=== PATIENT | male | born 1990 | race Caucasian/White ===

== ENCOUNTER 2017-08-06 13:46 | Emergency (ER) | payer BC, OTHER ==
[~2017-08-06] VITALS: Ht 195.6 cm; Wt 89.0 kg
[~2017-08-06 13:46] MED LIST: AMOX875T PO; IBUP-1222 PO; MELO7.5T31 PO; MELOXICAM PO; NAPR-850 PO; OXYC1TAB7 PO
[2017-08-06] MEDS ORDERED: KETOROLAC 30 MG/1 ML ONE (15:00)
[2017-08-06] MEDS ORDERED: KETOROLAC 30 MG/1 ML IM ONE (15:00)
[2017-08-06] MEDS ORDERED: CYCLOBENZAPRINE 10 MG TABLET ONE (16:57)
[2017-08-06] MEDS ORDERED: CYCLOBENZAPRINE 10 MG TABLET PO ONE (17:00)
[2017-08-06 18:21] VITALS: BP 124/80
== END 2017-08-06 18:23 | disposition home or self-care (01) ==
LOC: ED 17:41
DX: S39.012A Strain of muscle, fascia and tendon of lower back, initial encounter (principal); G89.29 Other chronic pain; M79.605 Pain in left leg; M54.5 Low back pain; X58.XXXA Exposure to other specified factors, initial encounter; Y93.89 Activity, other specified; Y99.8 Other external cause status; Y92.89 Other specified places as the place of occurrence of the external cause
CPT/HCPCS: 81003; 96372; 99283; J1885

== ENCOUNTER 2018-04-15 13:05 | Emergency (ER) | payer OTHER ==
[~2018-04-15] VITALS: Ht 195.6 cm; Wt 92.0 kg
[2018-04-15] MEDS ORDERED: KETOROLAC 60 MG/2 ML IM ONE (14:00)
[2018-04-15] MEDS ORDERED: KETOROLAC 30 MG/1 ML ONE (14:02)
[2018-04-15 14:24] LABS: BASOPHILS # (AUTO) 0.02 x10^3/uL (0-0.1); BASOPHILS % (AUTO) 0 % (0-1); EOSINOPHILS # (AUTO) 0.03 x10^3/uL (0-0.4); EOSINOPHILS % (AUTO) 1 % (1-7); LYMPHOCYTES # (AUTO) 1.57 x10^3/uL (1-3.4); LYMPHOCYTES % (AUTO) 32 % (22-44); MD NO; MEAN CORPUSCULAR HEMOGLOBIN 27.4 pg (27.5-34.5); MEAN CORPUSCULAR HGB CONC 33.5 g/dL (33.2-36.2); MEAN CORPUSCULAR VOLUME 81.7 fL (81-97); MEAN PLATELET VOLUME 8.1 fL (7.4-10.4); MONOCYTES # (AUTO) 0.38 x10^3/uL (0.2-0.8); MONOCYTES % (AUTO) 8 % (2-9); NEUTROPHILS # (AUTO) 2.89 x10^3/uL (1.8-6.8); NEUTROPHILS % (AUTO) 59 % (42-75); PLATELET COUNT 190 x10^3/uL (130-400); RED BLOOD COUNT 5.03 x10^6/uL (4.38-5.82); RED CELL DISTRIBUTION WIDTH 12.9 % (9.4-14.8)
[2018-04-15 14:35] LABS: ALBUMIN 3.5 g/dL (3.4-5.0); ANION GAP 6 mmol/L (5-15); CALCIUM 8.6 mg/dL (8.5-10.1); CHLORIDE 113 mmol/L (98-107); CREATININE 1.13 mg/dL (0.7-1.3)
[2018-04-15 15:21] VITALS: BP 114/70
== END 2018-04-15 15:23 | disposition home or self-care (01) ==
LOC: ED 15:17
DX: R07.89 Other chest pain (principal); J40 Bronchitis, not specified as acute or chronic; Z88.8 Allergy status to other drugs, medicaments and biological substances
CPT/HCPCS: 36415; 71046; 80048; 82040; 85025; 93005; 96372; 99285; J1885

== ENCOUNTER 2018-09-09 14:46 | Emergency (ER) | payer OTHER ==
[~2018-09-09] VITALS: Ht 195.6 cm; Wt 89.0 kg
[2018-09-09] MEDS ORDERED: DIAZEPAM 5 MG TABLET PO ONE (16:30)
[2018-09-09] MEDS ORDERED: HYDROcodone/APAP 5/325 TABLET PO ONE ×2 (16:30→17:30)
[2018-09-09] MEDS ORDERED: KETOROLAC 30 MG/1 ML IV ONE (16:30)
[2018-09-09] MEDS ORDERED: DIAZEPAM 5 MG TABLET ONE (16:54)
[2018-09-09] MEDS ORDERED: HYDROcodone/APAP 5/325 TABLET ONE (16:55)
[2018-09-09] MEDS ORDERED: KETOROLAC 30 MG/1 ML ONE (16:55)
[2018-09-09 17:29] VITALS: BP 133/82
[2018-09-09] MEDS ORDERED: KETOROLAC 30 MG/1 ML IM ONE (17:30)
== END 2018-09-09 17:53 | disposition home or self-care (01) ==
LOC: ED 17:47
DX: S39.012A Strain of muscle, fascia and tendon of lower back, initial encounter (principal); M25.562 Pain in left knee; M25.572 Pain in left ankle and joints of left foot; X50.1XXA Overexertion from prolonged static or awkward postures, initial encounter; Y93.89 Activity, other specified; Y99.0 Civilian activity done for income or pay; Y92.69 Other specified industrial and construction area as the place of occurrence of the external cause
CPT/HCPCS: 72110; 73610; 73630; 96372; 99284; J1885

== ENCOUNTER 2019-02-02 21:05 | Emergency (ER) | payer OTHER ==
[~2019-02-02] VITALS: Ht 195.6 cm; Wt 95.9 kg
--- NOTE | 2019-02-02 23:59 | NUR ---
pt called to room from lobby
--- NOTE | 2019-02-03 00:28 | NUR ---
Pt reports right flank pain for a couple days with hematuria today.
[2019-02-03 00:30] LABS: MICROSCOPIC INDICATED
[2019-02-03 00:35] LABS: BASOPHILS # (AUTO) 0.03 x10^3/uL (0-0.1); BASOPHILS % (AUTO) 1 % (0-1); EOSINOPHILS # (AUTO) 0.13 x10^3/uL (0-0.4); EOSINOPHILS % (AUTO) 3 % (1-7); LYMPHOCYTES # (AUTO) 2.04 x10^3/uL (1-3.4); LYMPHOCYTES % (AUTO) 42 % (22-44); MD NO; MEAN CORPUSCULAR HEMOGLOBIN 27.5 pg (27.5-34.5); MEAN CORPUSCULAR HGB CONC 33.5 g/dL (33.2-36.2); MEAN CORPUSCULAR VOLUME 82.2 fL (81-97); MEAN PLATELET VOLUME 8.5 fL (7.4-10.4); MONOCYTES # (AUTO) 0.39 x10^3/uL (0.2-0.8); MONOCYTES % (AUTO) 8 % (2-9); NEUTROPHILS # (AUTO) 2.25 x10^3/uL (1.8-6.8); NEUTROPHILS % (AUTO) 46 % (42-75); PLATELET COUNT 217 x10^3/uL (130-400); RED BLOOD COUNT 5.21 x10^6/uL (4.38-5.82); RED CELL DISTRIBUTION WIDTH 13.8 % (9.4-14.8)
[2019-02-03 00:38] LABS: CULTURE INDICATED? NO
[2019-02-03 00:47] LABS: ALANINE AMINOTRANSFERASE 68 U/L (12-78); ALBUMIN 4.3 g/dL (3.4-5.0); ANION GAP 7 mmol/L (5-15); CALCIUM 9.1 mg/dL (8.5-10.1); CHLORIDE 109 mmol/L (98-107); CREATININE 1.02 mg/dL (0.7-1.3)
[2019-02-03 00:49] LABS: ALKALINE PHOSPHATASE 74 U/L (45-117); BILIRUBIN,TOTAL 0.6 mg/dL (0.2-1.0); TOTAL PROTEIN 7.2 g/dL (6.4-8.2)
[2019-02-03 01:35] VITALS: BP 120/82
== END 2019-02-03 01:50 | disposition home or self-care (01) ==
LOC: ED 02-03 01:19
DX: M54.5 Low back pain (principal); R30.0 Dysuria
CPT/HCPCS: 36415; 80053; 81001; 83690; 85025; 99283